=== PATIENT | male | born 1985 | race Caucasian/White ===

== ENCOUNTER 2017-03-17 19:20 | Emergency (ER) | payer OTHER ==
[~2017-03-17] VITALS: Ht 170.2 cm; Wt 104.3 kg
[~2017-03-17 19:20] MED LIST: CLEOCIN HCL150 MG PO; DOXYCYCLINE 10100 MG PO; FAMOTIDINE PO; HYDROCODONE-ACE15 ML PO; IBUPROFEN 800800 M1 PO; IBUPROFEN 800800 MG PO; MEDROLDOSEPACK PO; NAPROXEN DELAY500 M1 PO; NOHOMEMEDICATIONS; NORCO 5-325 TA1 EACH; NORCO 5-325 TA1 EACH PO; NORCO 7.5-3251 EACH PO; PERCOCET 5-3251 EACH PO; PHENERGAN 25 MG25 M1 PO; PREDNISONE 20 M20 M1 PO; SULFACETAMIDE 115 M1 OP; VALIUM5 MG PO; VICODIN 5-5001 EACH PO; [UNRECOGNIZED DRUG - REMARK]
[2017-03-17] MEDS ORDERED: XARELTO20 MG (19:30)
[2017-03-17] MEDS ORDERED: ADIPEX-P37.5 MG (19:31)
[2017-03-17 19:43] LABS: ABSOLUTE BASOPHILS 0.1 thou/uL (0.0-0.2); ABSOLUTE EOSINOPHILS 0.1 thou/uL (0.0-0.7); ABSOLUTE LYMPHOCYTES 3.1 thou/uL (0.8-5.3); ABSOLUTE NEUTROPHILS 7.8 thou/uL (1.6-8.1); BASOPHILS 0.8 %; EOSINOPHILS 0.9 %; HEMATOCRIT 48.8 % (42.0-52.0); HEMOGLOBIN 15.7 gm/dL (14.0-18.0); LYMPHOCYTES 25.4 %; MCH 28.2 pg (26.0-34.0); MCHC 32.2 g/dL (28.0-37.0); MCV 87.7 fL (80.0-100.0); MONOCYTES 8.2 %; MPV 10.5 fl. (7.2-11.1); NUCLEATED RBCS 0 /100WBC; PLATELET COUNT* 269 thou/uL (150-400); POLYS 64.7 %; RBC 5.56 mil/uL (4.50-6.00); RDW-CV 14.2 % (10.5-14.5); WBC 12.1 thou/uL (4.0-11.0)
[2017-03-17 19:53] LABS: ANION GAP 11 mmol/L (7-16); BUN 9 mg/dL (7-18); CALCIUM 9.3 mg/dL (8.5-10.1); CHLORIDE 103 mmol/L (98-107); CO2 27 mmol/L (21-32); CREATININE 0.9 mg/dL (0.6-1.3); GLUCOSE 93 mg/dL (70-99); POTASSIUM 3.4 mmol/L (3.5-5.1); SODIUM 141 mmol/L (136-145)
[2017-03-17 19:57] LABS: INR 1.1; PROTIME 10.9 Seconds (9.20-11.50)
[2017-03-17 20:09] LABS: ALBUMIN 3.9 g/dL (3.4-5.0); ALKALINE PHOSPHATASE 65 U/L (46-116); CK-MB MASS < 0.5 ng/mL (<0.5-3.6); LIPASE 135 U/L (73-393); MAGNESIUM 1.7 mg/dL (1.8-2.4); NT-PRO BRAIN NAT PEPTIDE 5 pg/mL (<300); SGOT 14 U/L (15-37); SGPT 29 U/L (30-65); TOTAL BILIRUBIN 0.7 mg/dL (<0.1-1.0); TOTAL PROTEIN 7.6 g/dL (6.4-8.2); TROPONIN-I LEVEL <0.06 ng/mL (<0.06)
[2017-03-17 21:51] VITALS: BP 123/91
--- NOTE | 2017-03-18 16:41 | EKG ---
[place] [address] ELECTROCARDIOGRAM REPORT Name: NERY SANCHEZ Room: [facility].#: [id number] Admission: 03/17/17 Attend Phys: Discharge: 03/17/17 Date of : 81 Report #: [id number] THIS REPORT FOR: //name// [facility] ED Test Date: 2017-03-17 Test Time: 19:24:19 Pat Name: NERY SANCHEZ Department: Room: Gender: M Coordinate Measuring Equipment Operator: JONY : 1985 Requested By: Bennie Clark Order Number: [id number] MD: Oskar Torres Measurements Intervals [place] Rate: 91 P: 21 TN: 134 QRS: 76 QRSD: 102 T: 52 QT: 336 QTc: 414 Interpretive Statements Sinus rhythm RSR' in V1 or V2, right VCD or RVH Baseline wander in lead(s) V2 No previous ECG available for comparison Electronically Signed On 03-18-2017 16:41:31 [employer] by Oskar Torres [email or web address] <ELECTRONICALLY SIGNED> By: Oskar Torres MD, [facility] 03/18/17 1641 [id number] 23 Oskar Torres MD, FACC /EPI
== END 2017-03-17 21:52 | disposition home or self-care (01) ==
LOC: M.ERS 19:20
PROVIDERS: Family Medicine
DX: R07.9 Chest pain, unspecified (principal); F17.210 Nicotine dependence, cigarettes, uncomplicated; Z87.442 Personal history of urinary calculi

== ENCOUNTER 2017-05-21 12:39 | Emergency (ER) | payer OTHER ==
[~2017-05-21] VITALS: Ht 172.7 cm; Wt 104.3 kg
[~2017-05-21 12:39] MED LIST changes: +ADIPEX-P37.5 MG; +XARELTO20 MG
[2017-05-21 12:47] VITALS: BP 137/86
[2017-05-21] MEDS ORDERED: AUGMENTIN 875-1 EACH PO (13:04)
== END 2017-05-21 13:16 | disposition home or self-care (01) ==
LOC: M.ERS 12:39
DX: J06.9 Acute upper respiratory infection, unspecified (principal)

== ENCOUNTER 2017-05-22 23:04 | Emergency (ER) | payer OTHER ==
[~2017-05-22] VITALS: Ht 172.7 cm; Wt 104.3 kg
[~2017-05-22 23:04] MED LIST changes: +AUGMENTIN 875-1 EACH PO
[2017-05-23 00:52] LABS: INFLUENZA A ANTIGEN None Detected (None Detect); INFLUENZA B ANTIGEN None Detected (None Detect)
[2017-05-23] MEDS ORDERED: FLONASE 0.05%50 MCG NASAL (01:04)
[2017-05-23] MEDS ORDERED: TRAMADOL 50 MG50 MG PO (01:10)
[2017-05-23 01:11] VITALS: BP 131/81
[2017-05-23] MEDS ORDERED: ZOFRAN ODT4 MG PO (01:46)
== END 2017-05-23 01:12 | disposition home or self-care (01) ==
LOC: M.ERS 23:04
PROVIDERS: Emergency Medicine
DX: J06.9 Acute upper respiratory infection, unspecified (principal); Z87.442 Personal history of urinary calculi

== ENCOUNTER 2017-07-17 00:52 | Emergency (ER) | payer OTHER ==
[~2017-07-17] VITALS: Ht 172.7 cm; Wt 108.9 kg
[~2017-07-17 00:52] MED LIST changes: +FLONASE 0.05%50 MCG NASAL; +TRAMADOL 50 MG50 MG PO; +ZOFRAN ODT4 MG PO
[2017-07-17 01:00] VITALS: BP 149/73
== END 2017-07-17 01:08 | disposition home or self-care (01) ==
LOC: M.ERS 00:52
DX: M79.602 Pain in left arm (principal)

== ENCOUNTER 2018-02-21 07:42 | Emergency (ER) | payer BC ==
[~2018-02-21] VITALS: Ht 175.3 cm; Wt 113.4 kg
[2018-02-21] MEDS ORDERED: VICTOZA0.6 MG/0.1 SUBQ (07:51)
[2018-02-21] MEDS ORDERED: ZPAK PO (07:56)
[2018-02-21] MEDS ORDERED: MEDROLDOSEPACK PO (07:56)
[2018-02-21 08:05] VITALS: BP 130/93
== END 2018-02-21 08:06 | disposition home or self-care (01) ==
LOC: M.ERS 07:42
DX: J40 Bronchitis, not specified as acute or chronic (principal); Z87.442 Personal history of urinary calculi